=== PATIENT | female | born 1940 | race Caucasian/White ===

== ENCOUNTER 2021-02-23 13:09 | Outpatient (CLI) | payer OTHER | END 2021-02-23 21:35 | disposition home or self-care (01) | LOC: SRD 13:09 | PROVIDERS: ATTEND Internal Medicine | DX: M19.072 Primary osteoarthritis, left ankle and foot (principal); M77.32 Calcaneal spur, left foot; M85.872 Other specified disorders of bone density and structure, left ankle and foot ==